=== PATIENT | male | born 1960 | race Caucasian/White ===

== ENCOUNTER 2020-10-12 10:35 | Outpatient (REF) | payer OTHER, SELFPAY ==
--- NOTE | ~2020-10-12 | XR_ITS ---
EXAMINATION: XR RIBS, RIGHT CLINICAL INFORMATION: Injury COMPARISON: Previous chest x-ray November 2018 TECHNIQUE: 3 views of the right ribs and one view of the chest were obtained. FINDINGS: The cardiac and mediastinal contours are stable. There is a left subclavian pacemaker defibrillator that appears unchanged. Hilar and mediastinal contours are unremarkable. The lungs are clear. There is no pleural effusion or pneumothorax. There is an acute nondisplaced right anterior ninth rib fracture. No other rib fracture is seen. There are lucencies with sclerotic margins seen in the proximal shaft of the right humerus questionable for changes from orthopedic hardware removal. There is adjacent cortical thickening and erosive change of the medial cortex of the proximal humeral shaft. XR/XR ribs RT min 3V w CXR1V IMPRESSION: Nondisplaced right anterior ninth rib fracture. No evidence for acute disease in the chest. Abnormal appearance to the right proximal humeral shaft. Question post orthopedic hardware removal. Cortical thickening and irregular lucencies in the adjacent medial cortex of the proximal humeral shaft. Infectious or neoplastic process should be considered. Clinical correlation recommended.
== END 2020-10-12 10:36 | disposition home or self-care (01) ==
LOC: HO.HMGCX 10:35
PROVIDERS: PCP Internal Medicine; Visit Provider Nurse Practitioner Family
DX: S29.9XXA Unspecified injury of thorax, initial encounter (principal)
CPT/HCPCS: 71101